=== PATIENT | male | born 1975 | race African-American/Black ===

== ENCOUNTER 2022-10-28 13:34 | Inpatient (IN) | payer OTHER ==
--- NOTE | 2022-10-28 13:48 | ED ---
General Adult HPI - General Chief complaint: Altered Mental Status Stated complaint: AMS Time Seen by Provider: 10/28/22 13:39 Source: police, EMS Mode of arrival: EMS Limitations: no limitations - History of Present Illness Initial comments: Dictation was produced using [employer] dictation software. please excuse any grammatical, word or spelling errors. Chief Complaint: 47-year-old male presents emergency department for altered mental status History of Present Illness: Patient is a 39-year-old male presents emergency department for altered mental status. Patient is currently incarcerated. He is brought in by nursing home staff. Patient has been incarcerated for approximately one week. Last 48 hours she's been showing signs of altered mentation click hallucinations. Patient believes that he is only been in nursing home for about 5 minut es. States he has a history of alcoholism. He denies any complaints. He has no known psychiatric history The ROS documented in this emergency department record has been reviewed and confirmed by me. Those systems with pertinent positive or negative responses have been documented in the HPI. All other systems are other negative and/or noncontributory. - Related Data Home Medications Medication Instructions Recorded Confirmed Famotidine [Pepcid] 20 mg PO BID 10/28/22 10/28/22 Allergies Allergy/AdvReac Type Severity Reaction Status Date / Time No Known Allergies Allergy Verified 10/28/22 13:51 Review of Systems ROS Statement: Those systems with pertinent positive or pertinent negative responses have been documented in the HPI. ROS Other: All systems not noted in ROS Statement are negative. Past Medical History Past Medical History: Liver Disease History of Any Multi-Drug Resistant Organisms: None Reported Past Surgical History: Unable to Obtain Past Psychological History: No Psychological Hx Reported Smoking Status: Current every day smoker Past Alcohol Use History: Daily, Heavy Past Drug Use History: Marijuana General Exam - General Exam Comments Initial Comments: PHYSICAL EXAM: General Impression: Alert and oriented x3, not in acute distress HEENT: Normocephalic atraumatic, extra-ocular movements intact, pupils equal and reactive to light bilaterally, mucous membranes moist. Cardiovascular: Heart regular rate and rhythm Chest: Able to complete full sentences, no retractions, no tachypnea Abdomen: abdomen soft, non-tender, non-distended, no organomegaly Musculoskeletal: Pulses present and equal in all extremities, no peripheral edema Motor: no focal deficits noted Neurological: CN II-XII grossly intact, no focal motor or sensory deficits noted Skin: Intact with no visualized rashes Psych: Normal affect and mood Limitations: no limitations Course Vital Signs 10/28/22 13:36 Temperature 98.6 F Pulse Rate 86 Respiratory 18 Rate Blood Pressure 96/73 O2 Sat by Pulse 98 Oximetry EKG Findings - EKG Comments: EKG Findings:: My EKG interpretation: Ventricular rate 60, sinus rhythm,. Interval 140, care side 2, QTc 433. No [place] prolongation, no QTC prolongation, no ST or T-wave changes noted. Overall, this EKG is unremarkable Medical Decision Making - Medical Decision Making Was pt. sent in by a medical professional or institution (, PA, EXTERMINATOR HELPER, urgent care, hospital, or half-way...) When possible be specific @ -No Did you speak to anyone other than the patient for history (EMS, parent, family, police, friend...)? What history was obtained from this source @ -Some history obtained from nursing home staff states that his altered Did you review nursing and triage notes (agree or disagree)? Why? @ -I reviewed and agree with nursing and triage notes Were old charts reviewed (outside hosp., previous admission, EMS record, old EKG, old radiological studies, urgent care reports/EKG's, half-way records)? Report findings @ -No old charts were reviewed Differential Diagnosis (chest pain, altered mental status, abdominal pain women, abdominal pain men, vaginal bleeding, musculoskeletal, weakness, fever, dyspnea, syncope, headache, dizziness, GI bleed, back pain, seizure, CVA, palpatations, mental health)? @ -Differential Altered Mental Status: Hypoglycemia, DKA, hypercapnia, ETOH, overdose, CO poisoning, trauma, myxedema coma, HTN encephalopathy, infection, encephalitis, psychosis, intercranial hemorrhage, hepatic encephalopathy, meningitis, CVA, this is not meant to be an all-inclusive list EKG interpreted by me (3pts min.). @ -As above X-rays interpreted by me (1pt min.). @ -None done CT interpreted by me (1pt min.). @ -Computed tomography scan of the brain shows no acute processes U/S interpreted by me (1pt. min.). @ -None done What testing was considered but not performed or refused? (CT, X-rays, U/S, labs)? Why? @ -None What meds were considered but not given or refused? Why? @ -None Did you discuss the management of the patient with other professionals (pr ofessionals i.e. , PA, EXTERMINATOR HELPER, lab, RT, psych nurse, social media content specialist, power plant engineer, teacher, wildlife officer, correctional case records supervisor)? Give summary @ -Case discussed with hospitalist for admission. Labs imaging clinical presentation reviewed Was smoking cessation discussed for >3mins.? @ -No Was critical care preformed (if so, how long)? @ -No Were there social determinants of health that impacted care today? How? (Homelessness, low income, unemployed, alcoholism, drug addiction, transportation, low edu. Level, literacy, decrease access to med. care, nursing home, rehab)? @ -No Was there de-escalation of care discussed even if they declined (Discuss DNR or withdrawal of care, Hospice)? DNR status @ -No What co-morbidities impacted this encounter? (DM, HTN, Smoking, COPD, CAD, Cancer, CVA, ARF, Chemo, Hep., AIDS, mental health diagnosis, sleep apnea, morbid obesity)? @ -None Was patient admitted / discharged? Hospital course, mention meds given and route, prescriptions, significant lab abnormalities, going to OR and other pertinent info. @ -47 y Old male brought in from nursing home for evaluation after noticed episodes of altered mental status. Vital signs stable. Laboratory evaluation obtained. He does have some macrocytosis. Metabolic panel shows mild acidosis with a creatinine of 3.08. No old creatinine for comparison. Rest of labs unremarkable. Patient be admitted for concerns of acute kidney injury and altered mental status. Nephrology and neurology consulted Undiagnosed new problem with uncertain prognosis? @ -No Drug Therapy requiring intensive monitoring for toxicity (Heparin, Nitro, Insu mervin, Cardizem)? @ -No Were any procedures done? @ -No Diagnosis/symptom? Acute, or Chronic, or Acute on Chronic? Uncomplicated (without systemic symptoms) or Complicated (systemic symptoms)? @ -1. Altered mental status, no obvious source Side effects of treatment? @ -No Exacerbation, Progression, or Severe Exacerbation? @ -No Poses a threat to life or bodily function? How? (Chest pain, USA, SD, pneumonia, PE, COPD, DKA, ARF, appy, cholecystitis, CVA, Diverticulitis, Homicidal, Suicidal, threat to staff... and all critical care pts) @ -yes - Lab Data Result diagrams: 10/28/22 13:54 10/28/22 13:54 Lab Results 10/28/22 10/28/22 10/28/22 Range/Units 13:54 13:54 13:54 WBC 5.8 (3.8-10.6) k/uL RBC 3.49 L (4.30-5.90) m/uL Hgb 12.3 L (13.0-17.5) gm/dL Hct 35.9 L (39.0-53.0) % MCV 102.7 H (80.0-100.0) fL MCH 35.1 H (25.0-35.0) pg MCHC 34.2 (31.0-37.0) g/dL RDW 12.5 (11.5-15.5) % Plt Count 185 (150-450) k/uL MPV 7.6 Neutrophils % 77 % Lymphocytes % 9 % Monocytes % 10 % Eosinophils % 2 % Basophils % 0 % Neutrophils # 4.5 (1.3-7.7) k/uL Lymphocytes # 0.5 L (1.0-4.8) k/uL Monocytes # 0.6 (0-1.0) k/uL Eosinophils # 0.1 (0-0.7) k/uL Basophils # 0.0 (0-0.2) k/uL Macrocytosis Slight Sodium 141 (137-145) mmol/L Potassium 3.5 (3.5-5.1) mmol/L Chloride 108 H (98-107) mmol/L Carbon Dioxide 19 L (22-30) mmol/L Anion Gap 14 mmol/L BUN 18 (9-20) mg/dL Creatinine 3.08 H (0.66-1.25) mg/dL Est GFR (CKD-EPI)AfAm 26 (>60 ml/min/1.73 sqM) Est GFR (CKD-EPI)NonAf 23 (>60 ml/min/1.73 sqM) Glucose 97 (74-99) mg/dL Calcium 9.3 (8.4-10.2) mg/dL Magnesium 2.3 (1.6-2.3) mg/dL Total Bilirubin 2.5 H (0.2-1.3) mg/dL AST 62 H (17-59) U/L ALT 65 H (4-49) U/L Alkaline Phosphatase 58 (38-126) U/L Ammonia 22 (<30) umol/L Total Protein 8.3 H (6.3-8.2) g/dL Albumin 4.2 (3.5-5.0) g/dL Serum Alcohol <10 mg/dL Disposition Clinical Impression: Altered mental status Disposition: ADMITTED IP TO THIS [facility] Condition: Fair Referrals: None,Stated [Primary Care Provider] - 1-2 days Decision Time: 14:48
[2022-10-28 14:06] LABS: Basophils % (A) 0 %; Eosinophils # (A) 0.1 k/uL (0-0.7); Eosinophils % (A) 2 %; HCT 35.9 % (39.0-53.0); HGB 12.3 gm/dL (13.0-17.5); Lymphocytes # (A) 0.5 k/uL (1.0-4.8); Lymphocytes % (A) 9 %; MCH 35.1 pg (25.0-35.0); MCHC 34.2 g/dL (31.0-37.0); MCV 102.7 fL (80.0-100.0); Macrocytosis Slight; Mean Platelet Volume 7.6; Monocytes # (A) 0.6 k/uL (0-1.0); Monocytes % (A) 10 %; Neutrophils # (A) 4.5 k/uL (1.3-7.7); Neutrophils % (A) 77 %; Platelet Count 185 k/uL (150-450); RBC 3.49 m/uL (4.30-5.90); RDW 12.5 % (11.5-15.5); WBC 5.8 k/uL (3.8-10.6)
[2022-10-28 14:16] LABS: ALT 65 U/L (4-49); AST 62 U/L (17-59); African American GFR (CKD) 26 (>60 ml/min/1.73 sqM); Albumin 4.2 g/dL (3.5-5.0); Alcohol <10 mg/dL; Alkaline Phosphatase 58 U/L (38-126); Anion Gap 14 mmol/L; Blood Urea Nitrogen 18 mg/dL (9-20); Calcium 9.3 mg/dL (8.4-10.2); Carbon Dioxide 19 mmol/L (22-30); Chloride 108 mmol/L (98-107); Glucose 97 mg/dL (74-99); Magnesium 2.3 mg/dL (1.6-2.3); Non-African American GFR(CKD) 23 (>60 ml/min/1.73 sqM); Potassium 3.5 mmol/L (3.5-5.1); Sodium 141 mmol/L (137-145); Total Bilirubin 2.5 mg/dL (0.2-1.3); Total Protein 8.3 g/dL (6.3-8.2)
--- NOTE | 2022-10-28 14:30 | CT ---
EXAMINATION TYPE: CT brain wo con DATE OF EXAM: 10/28/2022 COMPARISON: None HISTORY: 47-year-old male confusion, AMS TECHNIQUE: Examination was done in axial plane without intravenous contrast. Coronal and sagittal r econstructions performed. CT DLP: 1204.4 mGycm Automated exposure control for dose reduction was used. FINDINGS: There is no evidence of acute intracranial hemorrhage, acute ischemic changes, mass, mass-effect, or extra-axial fluid collection. There is no effacement of cerebral sulci or basal subarachnoid cister ns. There is no hydrocephalus. There is no midline shift. Peña-white matter distinction is preserv ed. Globus palatini. Scattered mild mucosal thickening ethmoid air cells and maxillary sinuses. Mastoid a ir cells are well pneumatized. Orbits and globes are intact. IMPRESSION: No acute intracranial abnormality seen.
[2022-10-28] MEDS ORDERED: SODIUM CHLORIDE 0.9% 1,000 ML IV STA (14:34)
[2022-10-28] MEDS ORDERED: NALOXONE 0.4 MG/ML 1 ML VIAL IV PRN (14:39)
[2022-10-28] MEDS: SODIUM CHLORIDE 0.9% 1,000 ML IV SCH (14:55)
[2022-10-28] MEDS ORDERED: THIAMINE 100 MG/ML 2 ML VIAL IM STA (17:03)
[2022-10-28] MEDS ORDERED: LORazepam 1 MG TAB PO PRN ×4 (17:03)
[2022-10-28] MEDS ORDERED: LORazepam 0.5 MG TAB PO PRN (17:03)
[2022-10-28] MEDS: HEPARIN SODIUM,PORCINE/PF 5,000 UNIT/0.5 ML SYRINGE SQ SCH (19:38)
[2022-10-28 20:39] LABS: Amphetamine Screen,Urine Not Detected (NotDetected); Barbiturate Screen,Urine Not Detected (NotDetected); Benzodiazepines Screen,Urine Not Detected (NotDetected); Cocaine Screen,Urine Not Detected (NotDetected); Methadone Screen, Urine Not Detected (NotDetected); Opiate Screen,Urine Not Detected (NotDetected); Oxycodone Screen, Urine Not Detected (NotDetected); Phencyclidine Screen,Urine Not Detected (NotDetected); Tricyclic Antidepressant,Urine Not Detected (NotDetected); Urn Cannabinoid Scrn Detected (NotDetected)
--- NOTE | 2022-10-28 23:20 | HP ---
HISTORY AND PHYSICAL CHIEF COMPLAINT: Change in mental status. HISTORY OF PRESENT ILLNESS: This is a 47-year-old gentleman with a past medical history of kidney failure, who is incarcerated, also had history of liver disease. The patient had history of polysubstance abuse including alcohol previously. The patient is incarcerated. The patient had some change in mental status and hallucinations. The patient also complains of hemoptysis. There is no history of any fever, rigors, or chills at this time. PAST MEDICAL HISTORY: Reviewed include liver disease, kidney failures. SOCIAL HISTORY: History of smoking, heavy alcohol intake. HOME MEDICATIONS: Pepcid. ALLERGIES: None. FAMILY HISTORY: No history of heart disease or strokes in the family. REVIEW OF SYSTEMS: A 14-point review is negative except as mentioned earlier. PHYSICAL EXAMINATION: VITAL SIGNS: Pulse 86, blood pressure 96/73, respirations 18. HEENT: Conjunctivae normal. NECK: No JVD. CARDIOVASCULAR: S1, S2. RESPIRATIONS: Breath sounds diminished at the bases. ABDOMEN: Soft, nontender. LEGS: No edema. NERVOUS SYSTEM: No focal deficits. SKIN: No ulcer, rash, or bleeding. JOINTS: No active deforming arthropathy. LABORATORY DATA: Hemoglobin 12.3. Bilirubin is 2.4. Creatinine is 3. Rest of the labs are noted. ASSESSMENT: 1. Acute renal failure with acute tubular necrosis. 2. Change in mental status, possibly alcohol withdrawal and early delirium tremens. 3. History of EtOH. 4. Mild alcoholic hepatitis. 5. History of renal disease. 6. History of nicotine dependence. RECOMMENDATIONS AND DISCUSSION: This is a 47-year-old gentleman, who presented with multiple complex medical issues, we will monitor the patient closely. I would recommend cautious hydration. Neurology and Nephrology consultations. Otherwise, WA protocol. Guarded prognosis because of multiple complex medical issues and further recommendations to follow. CT brain was reviewed. I would also recommend a chest x-ray. Further recommendations to follow. MMODL / IJN: [id number] /
[2022-10-29] MEDS: SODIUM CHLORIDE 0.9% 1,000 ML IV SCH (03:44)
[2022-10-29 07:57] LABS: Basophils % (A) 0 %; Eosinophils # (A) 0.1 k/uL (0-0.7); Eosinophils % (A) 1 %; HCT 33.3 % (39.0-53.0); HGB 11.1 gm/dL (13.0-17.5); Lymphocytes # (A) 1.5 k/uL (1.0-4.8); Lymphocytes % (A) 40 %; MCH 34.3 pg (25.0-35.0); MCHC 33.3 g/dL (31.0-37.0); MCV 103.1 fL (80.0-100.0); Macrocytosis Slight; Mean Platelet Volume 7.5; Monocytes # (A) 0.5 k/uL (0-1.0); Monocytes % (A) 12 %; Neutrophils # (A) 1.7 k/uL (1.3-7.7); Neutrophils % (A) 43 %; Platelet Count 160 k/uL (150-450); RBC 3.23 m/uL (4.30-5.90); RDW 12.5 % (11.5-15.5); WBC 3.8 k/uL (3.8-10.6)
[2022-10-29 08:00] LABS: ALT 58 U/L (4-49); AST 52 U/L (17-59); African American GFR (CKD) 90 (>60 ml/min/1.73 sqM); Albumin 3.2 g/dL (3.5-5.0); Albumin/Globulin Ratio 0.9; Alkaline Phosphatase 50 U/L (38-126); Anion Gap 6 mmol/L; Blood Urea Nitrogen 13 mg/dL (9-20); Calcium 8.3 mg/dL (8.4-10.2); Carbon Dioxide 24 mmol/L (22-30); Chloride 110 mmol/L (98-107); Globulin 3.5 g/dL; Glucose 75 mg/dL (74-99); Non-African American GFR(CKD) 78 (>60 ml/min/1.73 sqM); Potassium 3.3 mmol/L (3.5-5.1); Sodium 140 mmol/L (137-145); Total Bilirubin 2.2 mg/dL (0.2-1.3); Total Protein 6.7 g/dL (6.3-8.2)
[2022-10-29] MEDS: MULTIVITAMINS, THERA 1 EACH TAB PO SCH (10:22)
[2022-10-29] MEDS: FOLIC ACID 1 MG TAB PO SCH (10:22)
[2022-10-29] MEDS: THIAMINE 100 MG TAB PO SCH (10:22)
[2022-10-29] MEDS: HEPARIN SODIUM,PORCINE/PF 5,000 UNIT/0.5 ML SYRINGE SQ SCH ×2 (10:23→20:18)
[2022-10-29] MEDS ORDERED: POTASSIUM CHLORIDE ER 20 MEQ TAB.ER PO STA (11:53)
--- NOTE | 2022-10-29 11:55 | P.NPCON ---
History of Present Illness - Reason for Consult acute renal failure - History of Present Illness Reason for admission: Acute kidney injury History of present illness: Patient is a 47-year-old male seen in renal consultation for acute kidney injury. Patient's creatinine on admission was 3.08 and is 1.12 today. Patient came to the hospital due to altered mental status. Patient is currently incarcerated. child support case officer is present in the room. Patient is currently awake and alert. Patient is not sure why came to the hospital. Her records it is noted that he was having hallucinations. He denies recent use of nonsteroidals. No history of diabetes. No history of coronary artery disease. No edema. No gross hematuria or dysuria. No chest pain or shortness of breath. No fever or chills. He does admit to drinking a pint of alcohol daily. Also admits to smoking cigarettes and doing marijuana. He denies use of heroin cocaine or other illicit drugs. Low blood pressure of 96/73 is noted on day of admission. Most recent blood pressure 151/87. He's on room air. Vital signs are stable. General: No acute distress. HEENT: Head exam is unremarkable. LUNGS: No audible rhonchi or wheezes. HEART: Rate and Rhythm are regular. ABDOMEN: Nontender. EXTREMITITES: No edema. Past Medical History Past Medical History: Liver Disease History of Any Multi-Drug Resistant Organisms: None Reported Past Surgical History: Unable to Obtain Past Anesthesia/Blood Transfusion Reactions: No Reported Reaction Past Psychological History: No Psychological Hx Reported Smoking Status: Current every day smoker Past Alcohol Use History: Daily, Heavy Past Drug Use History: Marijuana - Past Family History Father Family Medical History: Diabetes Mellitus Medications and Allergies Home Medications Medication Instructions Recorded Confirmed Type Famotidine [Pepcid] 20 mg PO BID 10/28/22 10/28/22 History Allergies Allergy/AdvReac Type Severity Reaction Status Date / Time No Known Allergies Allergy Verified 10/28/22 13:51 Physical Exam Vitals: Vital Signs Temp Pulse Pulse Resp BP BP Pulse Ox 10/29/22 08:42 97.9 F 62 18 151/87 100 10/29/22 01:40 97.6 F 54 L 18 128/77 98 10/28/22 19:50 18 10/28/22 19:45 97.9 F 60 18 153/88 100 10/28/22 16:20 97.6 F 53 L 15 146/90 100 10/28/22 15:05 64 18 112/71 99 10/28/22 13:36 98.6 F 86 18 96/73 98 Intake and Output 10/28/22 10/29/22 10/29/22 22:59 06:59 14:59 Intake Total 75 1250 Balance 75 1250 Intake: Intake, IV Titration 75 900 Amount Sodium Chloride 0.9% 1, 75 900 000 ml @ 75 mls/hr IV . [id number] [facility] Rx#:[id number] Oral 350 Other: Voiding Method Toilet Toilet # Voids 2 Weight 99.79 kg Results - Lab Results Most recent lab results Calcium 8.3 mg/dL (8.4-10.2) L 10/29/22 07:04 Magnesium 2.3 mg/dL (1.6-2.3) 10/28/22 13:54 10/29/22 07:04 10/29/22 07:04 Assessment and Plan Plan: Assessment: 1. Acute kidney injury mostly prerenal improved with IV hydration. Creatinine 2.08 on admission and is 1.12 today. 2. Hypokalemia from poor intake. 3. Metabolic acidosis secondary to acute kidney injury. Improved. Plan: Hep-Lock IV fluids. Encourage oral intake. Check UA. Avoid nephrotoxins. Replace potassium. Thank you for the consultation. I will continue to follow the patient with you during his hospital stay.
--- NOTE | 2022-10-29 13:41 | P.CNNES ---
History of Present Illness Consult date: 10/28/22 Requesting physician: Jv Abdalla Reason for Consult: Altered mental status History of Present Illness: Patient is a 47-year-old right-handed male, with history of substance abuse, was incarcerated on 10/20/2022. Patient developed acute mental status change in the last couple days. Patient was causing problems in the cell, therefore he was extracted out of the cell, and EMS was called and patient was brought to the hospital. At present patient is hand and feet cuffed. A police aide was also present, who said that patient was hallucinating, paranoid and was declining condition. Symptoms started about 2 days ago, but yesterday was really bad. He was very erratic, "talking off the wall", causing problems in the residential. He was believing that he was spitting up blood although he was not. He was believing that fentanyl smell is coming from the vents. EMS flow sheet not present in the chart. Patient's vitals on arrival blood pressure 96/73, pulse rate 86 temperature 98.6. Blood test shows normal WBC hemoglobin 12.3, with elevated MCV 102, platelets are normal. Electrolytes normal, BUN 18, creatinine 3.08. AST 62, ALT 65, ammonia is normal 22. Urine drug screen positive for marijuana. Blood alcohol level negative. CT head revealed no acute intracranial process. I personally reviewed CT head, agree with the findings. EKG shows sinus rhythm with occasional supraventricular premature complexes. Patient states that he has smoked marijuana for long time. He smokes almost every hour and it takes about 4 hours to do a joint. He has tried cocaine in the past, the last time he did was about 2 months ago but most recently on 10/17/2022. Patient also has drank about 4 double shots of vodka and 8 beers almost daily for last 3-4 years. He smokes 6 cigarettes per day. Review of Systems Constitutional: Reports weight loss, Denies chills, Denies fever Eyes: denies blurred vision, denies pain Ears: deny: decreased hearing, ear discharge Ears, nose, mouth and throat: Denies headache, Denies sore throat Cardiovascular: Denies chest pain, Denies shortness of breath Respiratory: Denies cough, Denies excessive sputum Gastrointestinal: Denies abdominal pain, Denies diarrhea, Denies nausea, Denies vomiting Musculoskeletal: Denies low back pain, Denies myalgias, Denies neck pain Integumentary: Denies pruritus, Denies rash Neurological: Reports as per HPI Psychiatric: Reports paranoia, Denies anxiety, Denies depression Endocrine: Reports weight change, Denies fatigue Past Medical History Past Medical History: Liver Disease History of Any Multi-Drug Resistant Organisms: None Reported Past Surgical History: Unable to Obtain Past Psychological History: No Psychological Hx Reported Smoking Status: Current every day smoker Past Alcohol Use History: Daily, Heavy Past Drug Use History: Marijuana - Past Family History Father Family Medical History: Diabetes Mellitus Medications and Allergies Home Medications Medication Instructions Recorded Confirmed Type Famotidine [Pepcid] 20 mg PO BID 10/28/22 10/28/22 History Allergies Allergy/AdvReac Type Severity Reaction Status Date / Time No Known Allergies Allergy Verified 10/28/22 13:51 Physical Examination - Vital Signs Vital Signs: Vital Signs Temp Pulse Resp BP Pulse Ox 10/28/22 15:05 64 18 112/71 99 10/28/22 13:36 98.6 F 86 18 96/73 98 Intake and Output 10/28/22 10/28/22 10/28/22 06:59 14:59 22:59 Other: Weight 99.79 kg Patient is a middle aged Afro-Monegasque male, in no acute distress. Patient is alert awake oriented to time place and person. Patient said it was 11/27/2022, but then said was the month of October. Patient thinks that he is in [facility], where he lives. He knows name of the current president. Speech and language functions are normal. Patient can name and repeat very well. No aphasia or dysarthria. Attention, concentration and fund of knowledge is adequate. On cranial nerve examination, pupils are equal, round and reacting to light, visual [place] are full on confrontation, with no neglect on double simultaneous depression. Extraocular muscles are intact with no nystagmus. Face is sy mmetric, tongue protrudes to the midline. Palatal elevation and sensation normal, hearing and shoulder shrug normal, facial sensation normal. On muscle strength testing, there is no pronator drift and the strength is normal in arms and legs distally and proximally. Deep tendon reflexes are symme1+ and plantars downgoing. Sensory to touch is equal with no neglect on double simultaneous stimulation. Cerebellar function showed no ataxia for [id number] testing. No dysdiadochokinesia. No ataxia for [id number] testing on either side. Tone and bulk of muscles normal. Gait deferred.. On general examination, there is no carotid bruit or murmur, S1-S2 audible. Chest is clear on consultation. Abdomen is soft nontender. No organomegaly, bowel sounds present. Peripheral pulses are present. No edema. Results - Laboratory Findings CBC and BMP: 10/29/22 07:04 10/29/22 07:04 Abnormal Lab Findings: Abnormal Labs 10/28/22 10/28/22 13:54 13:54 RBC 3.49 L Hgb 12.3 L Hct 35.9 L MCV 102.7 H MCH 35.1 H Lymphocytes # 0.5 L Chloride 108 H Carbon Dioxide 19 L Creatinine 3.08 H Total Bilirubin 2.5 H AST 62 H ALT 65 H Total Protein 8.3 H Assessment and Plan Assessment: * Altered mental status, likely due to acute delirium. This can be related to withdrawal from polysubstance including marijuana versus alcohol, although alcohol withdrawal would be less likely as he has been sober for last 8 days. Acute delirium could also be related to acute kidney injury. * History of polysubstance use * Patient incarcerated. * Acute kidney injury Plan: * Patient's mentation at present appears to be normal. His delirium probably has resolved. He is being hydrated. Nephrology is on board for acute kidney injury. If the mental status fluctuates, could be related to delirium from withdrawal from polysubstance abuse, and hopefully will also improve in the next day or 2. * Patient's neurological examination is normal. No other neurological workup indicated. We will follow clinically. Thank you for the consult.
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
[2022-10-29] MEDS: ACAMPROSATE CALCIUM 333 MG TABLET.DR PO SCH ×2 (15:40→22:09)
--- NOTE | 2022-10-29 16:55 | XR ---
EXAMINATION TYPE: XR chest 1V portable DATE OF EXAM: 10/29/2022 Comparison: None Clinical History: 47-year-old male CHF Findings: The cardiomediastinal silhouette, aorta, and pulmonary vasculature are within normal limits. Lungs and pleural spaces are clear. Impression: No acute cardiopulmonary process.
[2022-10-29] MEDS ORDERED: MIRTAZAPINE 15 MG TAB PO SCH (21:00)
--- NOTE | 2022-10-29 23:39 | PN ---
PROGRESS NOTE DATE OF SERVICE: 10/29/2022 SUBJECTIVE: This is a 47-year-old gentleman, who was admitted with acute renal failure and change in mental status, improving significantly. Multiple consultants are following the patient closely. Today, the CT brain showed no acute abnormality. Creatinine has improved to 1.12. OBJECTIVE: VITAL SIGNS: Pulse is 62, blood pressure 151/83, respirations 18. CHEST: Clear to auscultation. CARDIOVASCULAR: S1, S2. ABDOMEN: Soft. NERVOUS SYSTEM: Nonfocal. LABORATORY DATA: Hemoglobin 11.1, potassium 3.3, bilirubin is 2.2. ASSESSMENT: 1. Acute renal failure with acute tubular necrosis, improving renal failure. 2. Change in mental status, acute alcohol withdrawal and delirium tremens. 3. History of EtOH. 4. Mild alcoholic hepatitis. 5. History of renal disease. 6. History of nicotine dependence. RECOMMENDATIONS AND DISCUSSION: Recommend to continue current management. Continue symptomatic treatment. Repeat labs in the morning. Avoid nephrotoxic medications. Portable chest x-ray. [facility] protocol. Prognosis is guarded. Possible discharge in the next 24 to 48 hours. MMODL / IJN: [id number] /
[2022-10-30 03:25] LABS: Appearance,Urine Clear (Clear); Bilirubin,Urine Negative (Negative); Blood,Urine Negative (Negative); Color,Urine Light Yellow; Glucose,Urine (UA) Trace (Negative); Ketones,Urine Negative (Negative); Leukocyte Esterase,Urine Negative (Negative); Nitrite,Urine Negative (Negative); PH, Urine 5.5 (5.0-8.0); Protein,Urine Negative (Negative); Specific Gravity,Urine 1.008 (1.001-1.035); Urobilinogen,Urine <2.0 mg/dL (<2.0)
[2022-10-30 07:41] VITALS: RESP 20
[2022-10-30] MEDS: HEPARIN SODIUM,PORCINE/PF 5,000 UNIT/0.5 ML SYRINGE SQ SCH ×2 (09:39→10:21)
[2022-10-30] MEDS: FOLIC ACID 1 MG TAB PO SCH (09:40)
[2022-10-30] MEDS: THIAMINE 100 MG TAB PO SCH (09:40)
[2022-10-30] MEDS: MULTIVITAMINS, THERA 1 EACH TAB PO SCH (09:40)
[2022-10-30] MEDS: ACAMPROSATE CALCIUM 333 MG TABLET.DR PO SCH ×2 (09:40→16:32)
--- NOTE | 2022-10-30 10:16 | P.PN ---
Subjective Progress Note Date: 10/29/22 Patient was seen for a follow-up. Patient is laying comfortably in the bed. A police clerk was also present in the room. Per nurse report, he has been sleeping a lot. Patient has not had any hallucinations. He offers no complaints. No headaches, no dizziness. Objective - Vital Signs Vital signs: Vital Signs Temp 98 F 10/30/22 07:41 Pulse 42 L 10/30/22 07:41 Resp 20 10/30/22 07:41 BP 152/87 10/30/22 07:41 Pulse Ox 99 10/30/22 07:41 FiO2 Intake & Output 10/29/22 10/30/22 10/30/22 18:59 06:59 18:59 Intake Total 600 600 Balance 600 600 Intake: Intake, IV Titration 600 Amount Sodium Chloride 0.9% 1, 600 000 ml @ 75 mls/hr IV . [id number] [facility] Rx#:[id number] Oral 600 Other: Voiding Method Toilet Toilet # Voids 3 - Exam Patient is a middle aged affirmative male, in no distress. He is alert and awake. Patient knows it is October 2022 and that he is in [facility] in [place]. He knows name of the current president, his personal age, date of . Mental status, speech and language functions are normal. Face is symmetric. - Labs CBC & Chem 7: 10/29/22 07:04 10/29/22 07:04 Labs: Abnormal Lab Results - Last 24 Hours (Table) 10/30/22 Range/Units 01:40 Urine Glucose (UA) Trace H (Negative) Microbiology - Last 24 Hours (Table) 10/28/22 17:38 Blood Culture - Preliminary Blood Assessment and Plan Assessment: * Altered mental status, likely due to acute delirium. This can be related to withdrawal from polysubstance including marijuana versus alcohol, although alcohol withdrawal would be less likely as he has been sober for last 8 days. Acute delirium could also be related to acute kidney injury. * History of polysubstance use * Patient incarcerated. * Acute kidney injury, now resolved. Plan: * Patient's mental status is completely normal. His delirium has resolved. No further report of hallucinations. Renal functions are now back to normal. * Patient has slightly low potassium, will defer to IM. * No other neurological workup indicated. Neurologically clear for discharge.
[2022-10-30 11:57] LABS: Basophils # (A) 0.02 X 10*3/uL (0.00-0.10); Basophils % (A) 0.5 %; Eosinophils # (A) 0.04 X 10*3/uL (0.04-0.35); HCT 32.6 % (39.6-50.0); HGB 10.9 d/dL (12.0-15.0); Lymphocytes # (A) 2.06 X 10*3/uL (0.90-5.00); Lymphocytes % (A) 49.8 %; MCH 34.4 pg (27.0-32.0); MCHC 33.4 d/dL (32.0-37.0); MCV 102.8 FL (80.0-97.0); Mean Platelet Volume 10.3 FL (9.5-12.2); Monocytes % (A) 12.1 %; NRBC Per 100 WBC 0 X 10*3/uL (0.00-0.01); Neutrophils # (A) 1.51 X 10*3/uL (1.80-7.70); Neutrophils % (A) 36.4 %; Platelet Count 192 X 10*3/uL (140-440); RBC 3.17 X 10*6/uL (4.40-5.60); RDW 11.9 % (11.5-14.5); WBC 4.14 X 10*3/uL (4.50-10.00)
[2022-10-30 12:32] LABS: ALT 51 U/L (10-49); AST 37 U/L (14-35); Albumin 3.3 d/dL (3.8-4.9); Albumin/Globulin Ratio 1.06 Ratio (1.60-3.17); Alkaline Phosphatase 50 U/L (41-126); BUN/Creat Ratio 7.56 Ratio (12.00-20.00); Blood Urea Nitrogen 6.8 mg/dL (9.0-27.0); Calcium 8.6 mg/dL (8.7-10.3); Carbon Dioxide 25.6 mmol/L (21.6-31.8); Chloride 104 mmol/L (96-109); Globulin 3.1 d/dL (1.6-3.3); Glucose 85 mg/dL (70-110); Potassium 3.3 mmol/L (3.5-5.5); Sodium 140 mmol/L (135-145); Total Bilirubin 0.9 mg/dL (0.3-1.2); Total Protein 6.4 d/dL (6.2-8.2)
[2022-10-30 12:48] VITALS: BP 121/73; PULSE 54; TEMP 98.7
--- NOTE | 2022-10-30 13:09 | P.PN ---
Subjective Patient is seen for follow-up for acute kidney injury. Renal function has improved with IV hydration. Serum creatinine is down to 0.9 from peak of 3.08 on admission. No significant complaints today. [place] 9 police officer at bedside Objective - Vital Signs Vital signs: Vital Signs Temp 98.7 F 10/30/22 12:47 Pulse 54 L 10/30/22 12:47 Resp 20 10/30/22 12:47 BP 121/73 10/30/22 12:47 Pulse Ox 100 10/30/22 12:47 FiO2 Intake & Output 10/29/22 10/30/22 10/30/22 18:59 06:59 18:59 Intake Total 600 600 Balance 600 600 Intake: Intake, IV Titration 600 Amount Sodium Chloride 0.9% 1, 600 000 ml @ 75 mls/hr IV . [id number] [facility] Rx#:[id number] Oral 600 Other: Voiding Method Toilet Toilet # Voids 3 - Exam Awake, comfortable, no acute distress Alert oriented 3 Examination of the heart S1 and S2 Examination lungs bilateral breath sounds are heard Abdomen is soft nontender Examination lower extremity shows oh evidence of edema SPECIAL ORDER JEWELER exam grossly intact - Labs CBC & Chem 7: 10/30/22 06:36 10/30/22 06:36 Labs: Abnormal Lab Results - Last 24 Hours (Table) 10/30/22 10/30/22 10/30/22 Range/Units 01:40 06:36 06:36 WBC 4.14 L (4.50-10.00) X 10*3/uL RBC 3.17 L (4.40-5.60) X 10*6/uL Hgb 10.9 L (12.0-15.0) d/dL Hct 32.6 L (39.6-50.0) % MCV 102.8 H (80.0-97.0) FL MCH 34.4 H (27.0-32.0) pg Neutrophils # 1.51 L (1.80-7.70) X 10*3/uL Potassium 3.3 L (3.5-5.5) mmol/L BUN 6.8 L (9.0-27.0) mg/dL BUN/Creatinine Ratio 7.56 L (12.00-20.00) Ratio Calcium 8.6 L (8.7-10.3) mg/dL AST 37 H (14-35) U/L ALT 51 H (10-49) U/L Albumin 3.3 L (3.8-4.9) d/dL Albumin/Globulin Ratio 1.06 L (1.60-3.17) Ratio Urine Glucose (UA) Trace H (Negative) Microbiology - Last 24 Hours (Table) 10/28/22 17:38 Blood Culture - Preliminary Blood Assessment and Plan Assessment: 1. Acute kidney injury mostly prerenal improved with IV hydration. Creatinine 2.08 on admission and is 0.9 today. 2. Hypokalemia from poor intake. 3. Metabolic acidosis secondary to acute kidney injury. Improved. Plan: Replace potassium Encourage increased oral intake.
[2022-10-30] MEDS: POTASSIUM CHLORIDE ER 20 MEQ TAB.ER PO SCH ×2 (13:21→16:32)
== END 2022-10-30 18:14 | DRG 896 ==
LOC: EC 13:34 → 5NMEDONC 14:39
PROVIDERS: ADMIT Hospitalist; ATTEND Hospitalist
DX: F10.231 Alcohol dependence with withdrawal delirium (principal); N17.0 Acute kidney failure with tubular necrosis; E87.20 Acidosis, unspecified; D75.89 Other specified diseases of blood and blood-forming organs; E87.6 Hypokalemia; F17.210 Nicotine dependence, cigarettes, uncomplicated; I49.1 Atrial premature depolarization; K70.10 Alcoholic hepatitis without ascites; Z28.310 Unvaccinated for COVID-19; Z28.21 Immunization not carried out because of patient refusal; F12.10 Cannabis abuse, uncomplicated; Z71.51 Drug abuse counseling and surveillance of drug abuser; Z71.41 Alcohol abuse counseling and surveillance of alcoholic; Z79.899 Other long term (current) drug therapy
CPT/HCPCS: 36415; 70450; 71045; 80053; 80306; 80320; 81003; 82140; 83735; 85025; 87040; 93005; 96360; 99285